=== PATIENT | male | born 1955 | race Hispanic/Latino ===

== ENCOUNTER → 2019-08-23 | Outpatient (CLI) | payer MEDICARE ==
--- NOTE | 2019-08-24 15:34 | Diagnostic Imaging Report ---
History: Nasal polyps Comparison studies: None Technique: Axial images were obtained through the paranasal sinuses. Coronal and sagittal images reconstructed from the axial data. Intravenous contrast: None Dose modulation, iterative reconstruction, and/or weight based adjustment of the mA/kV was utilized to reduce the radiation dose to as low as reasonably achievable. Findings: Right anterior complex: Frontal sinus: Opacified with periosteal thickening Frontonasal recess: Opacified Anterior ethmoid air cells: Mucosal thickening Ostiomeatal unit: Obliterated Maxillary sinus: Almost completely opacified with periosteal thickening Left anterior complex: Frontal sinus: Clear. Frontonasal recess: Clear. Anterior ethmoid air cells: Clear. Ostiomeatal unit: Obliterated with expansion of the infundibulum Maxillary sinus: Almost completely opacified Posterior complex: Sphenoid sinuses: Mucosal thickening at the right sphenoid sinus. The left sphenoid sinus is clear Sphenoethmoidal recesses: Patent Posterior ethmoid air cells: Clear. Sphenoid septum: Towards the right. Other: Nasal vestibule and cavity: Severely obliterated left nasal cavity by nodular mucosal thickening. Mildly narrowed right nasal cavity Nasal septum: 5 mm right septal deviation Agger Nasi: Clear bilaterally. Turbinates: Non-aerated on the right. Not clearly visualized on the left, likely related to remodeling. Deshaun cells: None Lamina papyracea: Intact. Cribriform plates: Symmetric, 5 mm below the level of the fovea ethmoidalis. Olfactory recesses: Clear Optic nerves: Not dehiscent [place] cells: None Internal carotid arteries: Do not bulge into the sphenoid sinuses. from the sphenoid sinuses by 2 mm bone septum. Atherosclerotic calcifications of the carotid siphons. Orbits: No abnormalities. Bones: No abnormalities. Temporal bones: No abnormalities. 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 Moderate diffuse cerebral volume loss. IMPRESSION: 1. Opacified the left maxillary sinus with expanded infundibulum and nodular obliteration of the left nasal cavity, concerning for antronasal polyp. 2. 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 Nonspecific inflammatory changes of the right sphenoid sinus. 3. Right septal deviation. Signed by: DR Toni Flower M.D. on 08/24/2019 3:32 PM
== END ==
LOC: CT 15:21
PROVIDERS: ATTEND Otolaryngology Otolaryngic Allergy
DX: J33.9 Nasal polyp, unspecified (principal)
CPT/HCPCS: 70486